=== PATIENT | female | born 1990 ===

== ENCOUNTER 2018-08-10 03:38 | Inpatient (IN) | payer BC ==
[2018-08-10] MEDS ORDERED: Buffered Lidocaine 1% SYRIN* 1 ML/SYRINGE INTRADERM ONE (04:31)
[2018-08-10] MEDS ORDERED: Lactated Ringers 1000 ML Bag* 1,000 ML IV ONE (04:31)
--- NOTE | 2018-08-10 04:41 | HP ---
General Information - Reason for Visit Patient experienced rupture of membranes with clear fluid approx 0030. Contractions began soon after with increase in frequency and intensity. - General Information Maternal Age: 28 Grav: 2 Para: 0 SAB: 1 IEA: 0 Estimated Due Date: 08/09/18 Maternal Blood Type and Rh: B Positive - Results this Serology/RPR Result: Non-Reactive Rubella Result: Immune HBsAg Result: Negative HIV Result: Negative GBS Culture Result: Negative Past Medical History Delivery History: See Records - Previous SAB 10/18 Pertinent Past Medical History: See Records Past Medical History Comment: Hypercholesteremia Pertinent Past Surgical History: None Pertinent Family History: See Records Family History Comment: HTN CAD Lung Ca Diabetes - Antepartal Records Antepartal Records: Reviewed, Uncomplicated Review of Systems Constitutional: Uncomfortable CV Complaint: No Respiratory: Shortness of Breath: No Gastrointestinal: Normal Bowel Movement, Nausea, Vomiting Genitourinary: Leaking Fluid, No Dysuria, Spotting Musculoskeletal: Contractions Neurological: No Headache, No Visual Changes Movement: Normal Exam Allergies/Adverse Reactions: Allergies No Known Allergies Allergy (Verified 08/10/18 03:52) Vital Signs 08/10/18 03:56 Temperature 97.7 F Pulse Rate 58 Respiratory 16 Rate Blood Pressure 138/94 (mmHg) O2 Sat by Pulse 100 Oximetry - Measurements Height: 5 ft 4 in Weight: 148 lb Weight in lbs: 148.785877 Body Mass Index (BMI): 25.4 Pre- Weight: 123 lb Weight Gained This : 25 lbs and 0 ozs - Exam Breast: Breast Exam Deferred CVA: No CVA Tenderness Extremities: No Edema Heart: Normal Rhythm/Heart Sounds HEENT: No Significant Findings Lungs: Clear Bilaterally Rectal: Rectal Exam Deferred Reflexes: DTR 2+, - Thyroid: - - WNL @ entry to care - Abdominal Exam Abdomen Exam: Non-Tender, Fundal Height Consistent with Dates - Ultrasound/Biophysical Profile Ultrasound Status: Not Done Targeted Exam Findings See L&D Outpatient Visit Provider Note for Findings: N/A Estimated Weight: 7lb Cervical Exam: 4cm Effacement: 90% Station: 0 Presenting Part: Vertex Membrane Status: SROM Amniotic Fluid Evaluation: Gross Rupture Bleeding/Discharge: Bloody Show EFM Findings - External Monitor Findings Baseline Heart Rate: 135 External Monitor Findings: Accelerations Present, No Pattern of Variable or Late Decelerations - rare variable decel, Variability Moderate Contractions: Regular, Moderate, 45-90 Seconds Contraction Frequency: Q 3-5 min Assessment/Plan - Assessment IUP @ 40+1 weeks gestation in active labor. Spontaneous rupture of membranes. No evidence metabolic acidemia - Plan Plan: Admit - Anticipate Vaginal Delivery Plan Comment: Admit to L&D. Patient prefers to avoid pain medication. Will try tub. Anticipate SVB. - Date/Time of Admission Date of Admission: 08/10/18 Time of Admission: 04:02
[2018-08-10] MEDS ORDERED: Lactated Ringers 1000 ML Bag* 1,000 ML IV SCH ×2 (05:00→10:00)
--- NOTE | 2018-08-10 08:51 | PN ---
Progress Note - Progress Note Date of Service: 08/10/18 Note: S: Pt increasingly feeling pressure with UCs. Breathing well through UCs. and RN providing labor support at bedside O: BP 126/84 HR 72 T 96.8 FHT 125bpm by doptones. No decels UCs q 2-3, firm VE: 9cm/100%/vtx 0 A: IUP at term in active labor No evidence of metabolic acidemia P: Anticipate trial of pushing soon
[2018-08-10] MEDS ORDERED: Misoprostol TAB* 200 MCG ONE (09:43)
[2018-08-10] MEDS ORDERED: OXYTOCIN* 10 UNITS/ML 1 ML VIAL IM ONE (09:55)
[2018-08-10] MEDS ORDERED: Misoprostol TAB* 200 MCG PR ONE (09:55)
[2018-08-10] MEDS ORDERED: Glycerin ADULT SUPP PR PRN (09:55)
[2018-08-10] MEDS ORDERED: Lidocaine 1% INJ* 10 MG/ML 30 ML SDV ONE ×2 (10:00→11:44)
--- NOTE | 2018-08-10 10:07 | PROCNOTE ---
[facility] OB: Delivery Note - Delivery A Date of : 08/10/18 Time of : 09:32 [place] Sex: Male Score 1 Minute: 9 Score 5 Minutes: 9 Gestational Age in Weeks and Days at Delivery: 40 Weeks and 1 Days Delivery Method: Spontaneous Vaginal Labor: Spontaneous Did Patient attempt ?: N/A, No Previous Amniotic Fluid: Clear Estimated Blood Loss: 400 Anesthesia/Analgesia: Nitrous-Labor Delivered By: Kody Cardoso - Nursery Level of Nursery: Regular/Bedside - Perineum Perineal Injury: 3rd Degree Extension Perineal Injury Comment: Dr. Rodriguez - Events Delivery Events of Note: Supplemental O2 to Mother, Post- Bleeding - Meds Given - Additional Delivery Notes Additional Delivery Notes: Patient admitted in labor s/p spontaneous rupture of membranes to clear fluid. Pt coped well with position changes, nitrous oxide, hydrotherapy and bedside support. Expected progression to complete. Length of labor 8 hours, 36 minutes. Pushed x 37 minutes. Category II FHT with pushing. Variability maintained. O2 to mother. liveborn male. Slow, controlled delivery of head. OA to [place]. Shoulders followed easily with maternal push. [place] vigorous with spontaneous cry. HR>110bpm. Short cord noted. Infant supported over pubic bone by mother and RN. Cord clamped x 2 and cut by FOB once pulsations ceased. [place] moved to maternal abdomen. Spontaneous delivery intact placenta. Membranes complete. Fundus slow to firm to massage and moderate bleeding noted. 10units IM pitocin given. Fundus firmed to massage but trickle persisted. 800mcg Cytotec per rectum x 1. Fundus firmed further and remained firm, bleeding resolved. Careful inspection of perineum yields a partial 3rd degree laceration. Dr. Rodriguez paged to bedside for consult and repair. See MD note. EBL 400mL. At time of note mother and infant in stable condition.
[2018-08-10] MEDS: Ibuprofen TAB* 600 MG PO PRN ×2 (10:15→18:28)
[2018-08-10] MEDS: Witch Hazel PAD* JAR TOPICAL PRN ×2 (11:31→15:18)
[2018-08-10] MEDS: Dibucaine 1% 28.35 GM TUBE PR PRN ×2 (11:31→15:18)
[2018-08-10] MEDS ORDERED: Simethicone TAB* 80 MG TAB.CHEW PO SCH (12:30)
[2018-08-10] MEDS: Docusate CAP* 100 MG PO SCH ×2 (14:06→20:14)
[2018-08-10] MEDS: Acetaminophen TAB* 325 MG PO PRN ×2 (14:41→20:14)
--- NOTE | 2018-08-10 16:15 | PTEDU ---
Patient Name: PENNIE ALLEN PENNIE ALLEN selected video: Follow Me Mum: [facility] [place] to Successful to view on 019 at 4:14:37 PM [id number]
[2018-08-11] MEDS: Ibuprofen TAB* 600 MG PO PRN ×3 (00:02→20:38)
[2018-08-11] MEDS: Acetaminophen TAB* 325 MG PO PRN (04:14)
[2018-08-11 05:56] LABS: ABS Lymphocytes 2.7 10^3/ul (1.0-4.8); ABS Monocytes 0.8 10^3/ul (0-0.8); Eosinophil % 0.3 %; Hematocrit 29 % (35-47); Hemoglobin 10.1 g/dL (12.0-16.0); Lymphocyte % 18.6 %; Mean Corpuscular HGB Conc 34 g/dL (31-36); Mean Corpuscular Hemoglobin 29 pg (27-31); Mean Corpuscular Volume 83 fL (80-97); Mean Platelet Volume 9.2 fL (7.4-10.4); Platelet Count 144 10^3/uL (150-450); Red Blood Count 3.52 10^6 /uL (3.70-4.87); Red Cell Distribution Width 14 % (10-15); White Blood Count 14.5 10^3/uL (3.5-10.8)
[2018-08-11] MEDS ORDERED: Ferrous Gluconate TAB* 324 MG TAB PO SCH (09:00)
[2018-08-11] MEDS: Docusate CAP* 100 MG PO SCH ×3 (09:08→20:39)
--- NOTE | 2018-08-11 17:34 | PTEDU ---
Patient Name: PENNIE ALLEN PENNIE ALLEN selected video: BBOB: Nurturing Your Gorgeous &Growing Baby by to view on 08/11/2018 at 5:33:07 PM [id number]
--- NOTE | 2018-08-11 18:12 | PTEDU ---
Patient Name: PENNIE ALLEN PENNIE ALLEN selected video: BBOB: Nurturing Your Gorgeous &Growing Baby by to view on 08/11/2018 at 6:11:38 [id number]
[2018-08-11 20:30] VITALS: BP 115/63
--- NOTE | 2018-08-11 20:55 | PTEDU ---
Patient Name: PENNIE ALLEN PENNIE ALLEN selected video: BBOB: Bonding Through Infant Massage to view on 08/11/2018 at 8:54:52 PM [id number]
[2018-08-12] MEDS: Ibuprofen TAB* 600 MG PO PRN (09:16)
[2018-08-12] MEDS: Docusate CAP* 100 MG PO SCH (09:17)
== END 2018-08-12 11:33 | disposition home or self-care (01) | DRG 560 ==
LOC: MCHOBOUT 03:38 → MCHOB 04:02
PROVIDERS: ADMIT Midwife; ATTEND Midwife
PROC: 10E0XZZ Delivery of Products of Conception, External Approach (ICD-10-PCS; principal; 2018-08-10)
PROC: 4A1HXCZ Monitoring of Products of Conception, Cardiac Rate, External Approach (ICD-10-PCS; 2018-08-10)
PROC: 0KQM0ZZ Repair Perineum Muscle, Open Approach (ICD-10-PCS; 2018-08-10)
DX: O76 Abnormality in fetal heart rate and rhythm complicating labor and delivery (principal); O72.1 Other immediate postpartum hemorrhage; Z37.0 Single live birth; O48.0 Post-term pregnancy; O70.1 Second degree perineal laceration during delivery; O69.3XX0 Labor and delivery complicated by short cord, not applicable or unspecified; O12.04 Gestational edema, complicating childbirth; O43.123 Velamentous insertion of umbilical cord, third trimester; Z3A.40 40 weeks gestation of pregnancy
CPT/HCPCS: 36415; 85025; A9270-GY; J2590